=== PATIENT | female | born 1980 | race Caucasian/White ===

== ENCOUNTER 2020-01-22 09:05 | Outpatient (CLI) | payer OTHER, SELFPAY ==
--- NOTE | 2020-01-27 11:38 | SLEEP_ITS ---
Home sleep study. DATE OF STUDY: 01/22/2020 ORDERING PHYSICIAN: Vinayak Durand. REASON FOR THE STUDY: Obstructive sleep apnea syndrome, depression. HISTORY: This patient is a 39-year-old female, 5 feet 4 inches tall, weighing 140 pounds with a body mass index of 24. She has restless sleep with frequent sleep interruptions. Her complains of severe snoring. All of her siblings have sleep apnea. As a child, she was diagnosed with obstructive sleep apnea and her tonsils were removed. She does not awaken from sleep feeling short of breath. She occasionally awakens at night with belching or coughing. She constantly snores and it is loud enough that others constantly complain about it. She occasionally has trouble sleeping with a cold. She does not gasp for breath at night. She occasionally has breathing problems witnessed by others. She rarely sweats excessively at night. She occasionally notices her heart pounding or beating irregularly at night. She does not fall asleep during the day, does not fall asleep involuntarily or while driving. She does not have sleep occur during physical exercise. She occasionally has loss of muscle tone with strong emotion and occasionally has trouble during the daytime due to excessive sleepiness. She is an mortgage loan assistant. She does not feel paralyzed on waking or falling asleep. She does not have vivid dreamlike scenes upon awakening or falling asleep. She is never afraid to go to sleep. She occasionally has nightmares, occasionally remembers her dreams, frequently has racing thoughts, rarely has feelings of sadness or depression. She frequently has anxiety, muscular tension and notices parts of her body jerking. She rarely kicks at night. She occasionally has crawly achy feelings in her legs. She does not have leg pain at night. She occasionally has morning jaw pain, frequently grinds her teeth during sleep. She rarely is bothered by pain during the day. She is not awakened by pain at night. She occasionally wakes up feeling stiff in the morning with sore achy muscles, frequently with pain in the neck and spine. She has memory problems, sometimes insomnia and frequent concentration difficulties. She takes antacids regularly. She goes to bed at 9:30 p.m., usually falling asleep quickly, waking 2 to 3 times at night to go to the bathroom. She awakes in the morning at 6 a.m. On the weekends, she will stay awake an hour later and wake from sleep 2 to 3 hours later, so she is getting recovery sleep. She estimates 6 to 8 hours of sleep at night. She does not take naps. Rarely, if she has a nap, it may be refreshing. She is drowsy in the morning for 1 hour or longer. She feels better in the afternoon than other times a day. MEDICAL COMORBIDITIES: Depression, fatigue, polyneuropathy. MEDICATIONS: None listed. HABITS: Smoked tobacco years ago. Caffeine, 1 cup of green tea daily. 3 to 4 alcoholic beverages daily. No recreational drugs. DESCRIPTION OF THE STUDY: On the [place] Sleepiness Scale, the score is 11. This was conducted as a type 3 portable home sleep test with 4-channel monitoring including respiratory effort channel, snoring channel, oxygen saturation channel, and heart rate channel. The study was scored using CMS guidelines. Duration was 8 hours 43 minutes. The AHI is 4. The oxygen desaturation index is 3.4. Lowest desaturation is 89%. The average saturation is 95%. She had 8 apneas. Of these apneas, the majority 88% or 7 apneas were central, 1 apnea or 12% was obstructive. She had 26 hypopneas, 28 snoring events, and 30 desaturations without desaturating below 88%. Heart rate ranged from 48 to 95. IMPRESSION: 1. This portable home sleep test shows evidence of extremely mild sleep
== END 2020-01-22 09:06 | disposition home or self-care (01) ==
LOC: ANHCSM 09:05
PROVIDERS: PCP Internal Medicine; Visit Provider Internal Medicine
DX: G47.30 Sleep apnea, unspecified (principal)
CPT/HCPCS: 95806

== ENCOUNTER 2021-08-22 12:08 | Emergency (ER) | payer OTHER, SELFPAY ==
[2021-08-22 12:45] VITALS: BP 121/52; PULSE 63; RESP 16; TEMP 36.8; O2SAT 100
--- NOTE | 2021-08-22 13:52 | ED.EYEPROB ---
HPI - Eye Problem General Chief complaint: Eye Problems Stated complaint: Shingles In Eye Time Seen by Provider: 08/22/21 13:41 Source: patient and family Mode of arrival: ambulatory Limitations: no limitations History of Present Illness HPI Narrative: 40 years old white female had rash left side of face and the scalp started 1 week ago, started on Valtrex 3 days ago, 1 day later developed itching rash all over her body, Valtrex was stopped, did not prescribe any alternative, came today because left eye is red, sore with clear discharge. Patient was told by her family physician to go to the emergency room for evaluation. Related Data Allergies Allergy/AdvReac Type Severity Reaction Status Date / Time amoxicillin Allergy Unknown HIVES Verified 08/22/21 14:10 valacyclovir [From Valtrex] Allergy Rash Verified 08/22/21 14:10 Review of Systems Review of Systems: CONSTITUTIONAL: Denies fever, chills, or sweats. EYES: Denies visual changes, redness, or discharge. ENT: Denies rhinorrhea, congestion, sore throat, or otalgia. CARDIOVASCULAR: Denies chest pain, palpitations, or edema. RESPIRATORY: Denies cough or dyspnea. GASTROINTESTINAL: Denies abdominal pain, nausea, vomiting, or diarrhea. GENITOURINARY: Denies dysuria or hematuria. SKIN: Denies rash or itching. MUSCULOSKELETAL: Denies back pain, joint pain, or myalgia. NEUROLOGIC: Denies headache, numbness, or weakness. PSYCHIATRIC: Denies anxiety or depression. Exam Narrative: General appearance: Well-developed, well-nourished Skin: Scattered blisters and the left face around left eye including the upper and lower eyelids Head: Normocephalic, nontraumatic Eyes: Conjunctival injection with tears ENT: Oropharynx normal, ears normal, nose normal Neck: Supple, nontender Vascular: Normal peripheral pulses, normal capillary refill. 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 Date: 08/22/21 Time: 16:13 Consultation #2: DR MANDUJANO, door to door salesperson at [facility]. Patient can follow-up as outpatient at [phone] Date: 08/22/21 Time: 16:14 Consultation #3: DR KEARNEY, ED of [facility], accepted patient transfer Date: 08/22/21 Time: 16:14 Vital Signs Vital signs: Vital Signs Temperature 36.8 C 08/22/21 12:45 Pulse Rate 63 08/22/21 12:45 Respiratory Rate 16 08/22/21 12:45 Blood Pressure 121/52 L 08/22/21 12:45 Pulse Oximetry 100 08/22/21 12:45 Temperature 36.8 C 08/22/21 12:45 Pulse Rate 63 08/22/21 12:45 Respiratory Rate 16 08/22/21 12:45 Blood Pressure 121/52 L 08/22/21 12:45 Pulse Oximetry 100 08/22/21 12:45 Procedures Other Procedure Procedure 1: Other Procedure: Fluorescent test on the left eye showed no acute abnormalities. MDM - Eye Problem MDM Narrative Medical decision making narrative: Patient presents with herpes zoster ophthalmicus. Patient is allergic to Valtrex. Currently complaining of left eye irritation and soreness which high likely infected with the virus. Patient need to be on oral antiviral treatment plus eye lubricant. Waiting for ophthalmology consultation. Patient visual acuity is 20/20, 20/15. Fluorescein test is negative. Discharge Plan Discharge Clinical Impression: Herpes zoster Qualifiers: Herpes zoster complications: without complications Qualified Code(s): B02.9 - Zoster without complications Allergic drug reaction Qualifiers: Encounter
--- NOTE | 2021-08-22 16:37 | PC.NURSE ---
Refuses ambulance transport to [facility] for further treatment. Pt states she needs to go home first and then she will drive herself to [facility]. Pt advised of risks of delay of treatment.
== END 2021-08-22 16:42 | disposition short-term general hospital (02) ==
PROVIDERS: Emergency Provider Emergency Medicine; PCP Internal Medicine
DX: B02.9 Zoster without complications (principal); T78.40XA Allergy, unspecified, initial encounter
CPT/HCPCS: 99282; A9270

== ENCOUNTER 2024-08-19 07:49 | Outpatient (CLI) | payer OTHER, SELFPAY ==
--- NOTE | ~2024-08-19 | NM_ITS ---
EXAMINATION: NM bone scan limited area DATE: 08/19/2024 13:34 INDICATION: Right hip pain TECHNIQUE: 24.3 mCi Tc-99m HDP was administered intravenously. Delayed scintigrams of the abdomen, p magnolia and proximal thighs were obtained in the anterior and posterior projections and of the pelvis a nd proximal thighs were obtained in the left and right lateral projections. COMPARISON: There are no other imaging studies at our institution. FINDINGS: Physiologic distribution of bone and soft tissue activity in the abdomen, pelvis or proximal thighs. No abnormal foci of increased bone uptake or photopenic defects. IMPRESSION: 1. Normal study. Reviewed, dictated and finalized at location A. IMPRESSION: 1. Normal study.
== END 2024-08-19 07:50 | disposition home or self-care (01) ==
PROVIDERS: PCP Internal Medicine; Visit Provider Internal Medicine
DX: M25.551 Pain in right hip (principal)
CPT/HCPCS: 78300; A9503

== ENCOUNTER 2025-02-07 14:56 | Outpatient (CLI) | payer OTHER, SELFPAY ==
--- NOTE | ~2025-02-07 | MM_ITS ---
EXAMINATION: MM screening jeane BI w jason HISTORY: Screening TECHNIQUE: Craniocaudal and mediolateral oblique 3-D tomosynthesis images were obtained and synthetic 2-D images were generated. CAD analysis was submitted and interpreted. COMPARISON: No prior mammogram is available for comparison at this institution. BREAST PARENCHYMAL COMPOSITION: Dense: The breasts are extremely dense, which lowers the sensitivity of mammography. FINDINGS: There is no evidence of suspicious mass, calcification, or architectural distortion to sugg est malignancy in either breast. There has been no suspicious interval change. IMPRESSION: 1. No mammographic evidence of malignancy. 2. Recommend routine screening mammography in one year. BI-RADS Category 1: Negative Reviewed, dictated and finalized at location A.
--- OUTSIDE RECORDS SUMMARY | 2025-02-07 15:02 | XMS_ITS | Referral Summary ---
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 Gender Identity Not on file Sexual Orientation Not on file Last Filed Vital Signs Vital Sign Reading Time Taken Comments Blood Pressure - - Pulse - - Temperature - - Respiratory Rate - - Oxygen Saturation - - Inhaled Oxygen Concentration - - Weight 59 kg (130 lb 0.1 oz) 04/13/2015 8:47 AM CDT Height 162.6 cm (5' 4 ) 04/13/2015 8:47 AM CDT Body Mass Index 22.32 04/13/2015 8:47 AM CDT Plan of Treatment Not on file Insurance [facility]PPO Address: [address] [address] [place] [phone] [facility] [facility]/PPO Address: [address] [address] [place] [phone] Care Teams Brattice Builder Relationship Specialty Start Date End Date Vinayak Durand MD [facility] [address] [place] [address] PCP - General Internal Medicine 07/14/24
--- OUTSIDE RECORDS SUMMARY | 2025-02-07 15:02 | XMS_ITS | Clinical Summary ---
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 Gender Identity Not on file Sexual Orientation Not on file Obstetrics History Last Filed Vital Signs Vital Sign Reading [...] 04/13/2015 8:47 AM CDT Plan of Treatment Health Maintenance Due Date Last Done Comments Breast Cancer Screening-Mammogram 1979 Cervical Cancer Screening 1979 Colon Cancer Screening-Colonoscopy 1979 Depression Screening 1979 Hepatitis C Screening 1979 DTaP/Tdap/Td Vaccine (1 - Tdap) 1990 Hepatitis B Screening 1997 Regular Well Visit/Exam 18-64 1997 Influenza Vaccine (Season Ended) 2025 HPV Vaccines Aged Out No longer eligi ble based on patient's age to complete this topic Pneumococcal vaccine <65 Aged Out No longer eligible based on patient's age to complete this topic Insurance [facility] [employer] Care Teams Data Management Specialist Relationship Specialty Start Date End Date Vinayak Durand MD [address] [place] [id number] PCP - General Internal Medicine 07/14/24
--- OUTSIDE RECORDS SUMMARY | 2025-02-07 15:02 | XMS_ITS | Data Portability ---
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 Still has some symptoms on the left hip trochanteric bursa. She would like another shot of cortisone here after we discussed treatment options in detail. Under sterile conditions I injected the patient's left hip trochanteric bursa in the office with 4 cc 0.5% ropivacaine and 20 mg of Kenalog. Patient tolerated the procedure well. She will continue with stretching and ice if necessary, she also has a refill on her prednisone she will take this if necessary. I will see her back in 6 weeks if she continues have significant symptoms or once the right side injected. She voiced understanding agrees with above plan she will call for any further problems difficulties or questions. Not available 06/27/2023 09:37:18 11/13/2023 11/13/2023 Patient has chronic trochanteric bursitis both hips left worse than right. We talked about treatment options today we are going to start her on a course of Voltaren 75 mg b.i.d. with food she is going to continue work on ITB band stretching and her previous exercises as prescribed by physical therapy. We talked about the fact that chronic multiple injections can start to weaken the attachment of the tendinous tissues at the greater trochanteric region. I think we should look into this further with other options 1st before we do another shot of cortisone. We will get some lab work to look for inflammatory markers, we will also get an MRI scan of each hip as she has had such chronic significant pain. I will see her back after this is done talk further about options at that point. She voiced understanding agrees above plan she will call for any further problems difficulties or questions. Not available 11/13/2023 09:58:09 11/20/2023 11/20/2023 The patient has chronic hip pain due to trochanteric bursitis of both hips. Despite several years of conservative measures treatment therapy, stretching, oral anti-inflammatori es, cortisone injections etc. her symptoms continue. We did talk about possibly sending her to see a yoga coordinator for further workup she is going to think about it for now she has declined. She is going to see how the diclofenac works that she has started just recently. She is going to give this more time be aggressive with her stretching modify her activities if necessary. The patient voiced understanding agrees above plan I will see her back as needed she was given a copy of all of her lab work and MRI results in case she wants to get another opinion or see a yoga coordinator. She will call us for any further problems difficulties or questions. Not available 11/20/2023 10:07:20 Plan of Treatment Reminders Order Date Submit Date Provider Last Modified By Organization Details Last Modified Time Details Appointments None recorded. Lab C-reactive protein, quantitativ e, serum or plasma 2023 024 [email or web address] Not available 4 11:51:52 erythrocyte sedimentati on rate, QN, blood 2023 024 [email or web address] Not available 4 11:51:52 IFEOMA + rf (antinuclea r antibodies + rheumatoid factor), quantitativ e, serum 2023 024 [email or web address] Not available 4 09:25:40 Referral None recorded. Procedures injection/a spiration joint/bursa (PROC) - in office procedure, administere d by provider 2022 023 [email or web address] In-Office Order, Internal Use Only DO Not Attach Compendium DO Not Attach Compendium, Do Not Delete/merge, [id number] 3 09:33:08 Surgeries None recorded. Imaging MRI, hip, w/o contrast 2023 024 [email or web address] [facility], [address] [place] [address] Dr, [place], [address], 4 12:21:53 Medication Orders diclofenac sodium 75 mg tablet,luis e yed release 2023 024 [facility] [address] [place] [address] [id number], [address], [place], [id number], 4 17:03:05 Kenalog 10 mg/mL suspension for injection 2022 023 [facility] [address] [place] [address] [facility] #[id number], [address], [place], [id number], 4 17:03:07 ropivacaine (PF) 5 mg/mL (0.5 %) injection solution 2022 023 [facility] [address] [place] [address] [facility] #[id number], [address], [place], [id number], 4 17:03:13 Patient TargetsNo targets recorded. Patient Instructions Encounter Date Encounter Id Patient Instructions Last Modified By Organization Details Last Modified Time 07/30/2024 [id number] risk assessment* Not availabl e 07/30/2024 17:34:17 INFLUENZA VACCIN E TD/TDAP Recommended today, patient declined Ordered Pa tient will get at local pharmacy/health department PNEUMONIA VACCINE Ordered Recommended today, patient declined Patient will get at local pharmacy/health department Recommen ded at age 64 SHINGLES Not indicated MAMMOGRAM: Last Mammogram No screening necessary patient is up to date DEXA SCAN CERVICAL SCREENING/PELVIC EXAMINATION Recommended today, but patient declined Ordered No screening necessary patient is up to date COLORECTAL SCREENING: Last Colonoscopy Recommended today, but patient declined Ordered Co lonoscopy declined. Cologuard ordered No screening necessary until age 45 DEPRESSION SCREENING Negative BMI Overweight Appropri ate NUTRITION Heart Healthy Diet PHYSICAL ACTIVITY Need more exercise/physical activity VISION Ordered Recommended today ALCOHOL USE No alcohol use Occasional/Soci al Use TOBACCO USE non smoker LUNG CANCER SCREENING Non Smoker-not indicated SEXUALLY ACTIVE HEPATITIS C SCREENING Not indicated GLUCOSE SCREENING LIPID SCREENING [email or web address] Not available 07/30/2024 17:17:04 Adult health evaluation risk assessment stable. Bilateral hip pain etiology which is obscure. Will obtain blood work from [facility] where she has had done studies for rheumatoid arthritis etc.. Will set up for a limited bone scan of both hip areas. See there is any signs of any acute inflammation. May need to consider possible nerve conduction study rule out some form of entrapment type of neuropathy. Otherwise is clinically stable. Additional Orders - Directives - Recommendations 1. Limited nuclear bone scan bone scan to lower back and hip area for chronic bilateral hip pain Next Appointment: 6 Months Approximate Date: 01/26/2025 Portions of the record may have been created with voice recognition software. Occasional wrong-word or [id number] substitutions may have occurred due to the inherent limitations of voice recognition software. Read the chart carefully and recognize, using context, where substitutions have occurred. [email or web address] Not available 07/30/2024 17:34:04 Reason for Referral None Reported. Results Created Date Observation Date Name Description Value Unit Range Abnormal Flag Note LastModifiedBy Organization Detail LastModifiedTime 11/15/19 24 11/15/2023 SEDIM ENTAT ION RATE erythrocyte sedimentatio n rate 12 mm/HR 0-20 Not Available [facility] (Lab) [address] [place], [address], 11/15/2023 13:00:33 11/15/19 24 11/15/2023 C REACT FILIPPO PROTE IN,UL TRA SENS C-reactive protein 0.06 mg/dL 0.0-0. 5 Not Available [facility] (Lab) [address] [place], [address], 11/15/2023 13:24:05 11/15/19 24 11/15/2023 RHEUM ATOID FACTO R rf <8.6 IU/mL 0.0-11 .9 Not Available [facility] (Lab) [address] [place], [address], 11/15/2023 13:25:12 11/15/19 24 11/17/2023 IFEOMA BY IFA RFX TITER /KATHRYN MARÍA antinuclear antibodies, ifa Negati ve Negat filippo <1:80 Borde rline 1:80 Posit filippo >1:80 ICAP nomen imani re: AC-0 For more infor mattanner n about Hep-2 cell patte rns use ANApa ttern s.org , the offic ial websi te for the Inter natio nal Conse nsus on Antin uclea r Antib chuck (IFEOMA) Patte rns (ICAP ). Perfo rmed at: [place] [address] Lab Direc tor: Vini peralta PhD, Phone : [phone] Not Available [facility] (Lab) [address] [place], [address], 11/17/2023 14:11:52 11/15/19 24 MR hip w/o contr ast, bilat eral [facility] [address] [place] [id number] Patien t Name: KAYLIE FELICIANO Access ion #: [id number] Sex: F : 1979 0 Dictat ed By: Derick Aponte ing Physic shelli: DARYA WARREN Orderi Physic shelli: DARYA WARREN Exam Date: 2023 08:22 AM Exam Name: MRI HIP BILAT WO Admitt ing Diagno sis(es ): CLINIC AL INFORM ATION: Bilate ral hip pain. No known injury . TECHNI JEREL INFORM ATION: Multis equenc e multip lanar MRI images of the bilate ral hips were obtain ed withou t contra st. COMPAR MICHAEL: None. FINDIN GS: BONES: No acute fractu re or osteon ecrosi s. Hetero geneou s marrow signal , likely due to red marrow hyperp lasia with inters persed areas of focal fatty marrow . JOINTS : Mild joint space narrow ing in both hips. Mild frayin g at the left hip anteri or superi or labrum . BURSAE : Mild edema and trace fluid in the trocha nteric bursae bilate rally. TENDON S: Mild tendin osis of the distal gluteu s medius and minimu s tendon s bilate rally. Origin s of the rectus femori s tendon and hamstr ing tendon s are intact . Distal insert ion of the iliops oas tendon is intact . MUSCLE S: Normal muscle bulk. No signif icant atroph y. No eviden ce of muscle strain or tear. OTHER: No other signif icant findin gs. IMPRES AJAY: 1. No acute osseou s abnorm ality identi fied. 2. Mild frayin g at the left hip anteri or superi or labrum . 3. Findin gs consis tent with mild bilate ral trocha nteric bursit is with mild tendin osis of the distal gluteu s medius and numbne ss tendon s bilate rally. Page 1 [facility] [address] [place] [address] [phone] Patien t Name: KAYLIE FELICIANO ion #: [id number] Sex: F : 1979 0 Dictat ed By: Derick mariscal Attend ing Physic shelli: BRIANA LACKEY [facility] Physic shelli: DARYA WARREN Exam Date: 2023 08:22 AM Exam Name: MRI HIP BILAT WO Admitt ing Diagno sis(es ): Electr onical ly Signed by: Derick mariscal at 2023 11:13: 50 AM Page [address] (Imaging) [address] [place], [address], 11/15/2023 12:21:35 08/19/20 24 08/19/2024 NM, bone scan, limit ed No observ ation record ed. [address] [place] [address], [address], 08/19/2024 17:50:10 08/29/2008/19/2024 NM, bone scan, limit ed No observ ation record ed. [email or web address] Not Available 2023 07:15:49 Result Notes None recorded. 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 Not Available [facility] 4 23:34:01 Verruca plantaris 78910103 Active 2018 Not Available [facility] 4 23:34:01 Irregular periods 23920560 Completed Not Available [facility] 3 06:45:03 Lipoma 47315255 Active Not Available [facility] 4 23:34:01 Trochante vandana bursitis of right hip 46053825036 9100 Active 2022 Not Available [facility] 4 23:34:01 Pain in right hip joint 10431036447 9102 Active 2022 Not Available [facility] 4 23:34:01 Bilateral hip joint pain 39979171920 997768 Active 2023 Not Available [facility] 4 23:34:01 Hip pain 60715878 Active 2023 Ebony Durand MD [address] [place] [address], [place] [address], [place], [address] , [facility] 4 17:30:23 Problem Notes None recorded. Procedures Surgical History None recorded. Imaging Results Imaging Date Name Status LastModified by Organiz ation Details LastModified Time 11/15/2023 MR hip w/o contrast, bilateral completed [email or web address] [facility] (Imaging) [address], [place], [address], 11/15/2023 12:21:35 08/19/2024 NM, bone scan, limited completed [email or web address] [facility] [address] [facility] [address], [place], [address], 08/19/2024 17:50:10 08/19/2024 NM, bone scan, limited completed [email or web address] Information not available 08/30/2024 07:15:49 Procedure Notes None recorded. Medical Equipment None Reported. Allergies Allergen ID Allergen Name Allergen Category Reaction Reaction Severity Criticality Documentation Date Start Date Code Code System Note Provider Name and Address Organization Details Recorded Time 43791 Biaxin medicatio n nausea Not available Not available 01/04/2023 90145 9 RxNorm Not Available [facility] 3 06:51:53 75495 amoxicill in medicatio n rash Not available Not available 01/04/2023 723 RxNorm Not Available [facility] 3 06:51:53 Medications Name Sig Start Date Stop Date Status Note LastModified by Organization Details LastModified Time celecoxib 200 mg capsule TAKE 1 CAPSULE BY MOUTH EVERY DAY 05/15 completed Not Available Not Available Not Available Mirena 21 mcg/24 hr (up to 8 years) 52 mg intrauterin e device Take 1 device by intrauter ine route. 05/15 completed Not Available Not Available Not Available prednisone 10 mg tablet 07/30 completed Not Available Not Available Not Available doxycycline hyclate 100 mg capsule TK 1 C PO BID 09/01 completed Not Available Not Available Not Available Effexor XR 75 mg capsule,ext ended release Take 1 capsule every day by oral route. 2012 active Not Available Not Available Not Avai lable clindamycin HCl 300 mg capsule TAKE 1 CAPSULE BY MOUTH THREE TIMES DAILY UNTIL ALL TAKEN 07/30 completed Not Available Not Available Not Available ibuprofen 800 mg tablet Take 1 tablet 3 times a day by oral route as needed for 30 days. active Not Available Not Available No t Available benzonatate 200 mg capsule Take 1 capsule 3 times a day by oral route. active Not Available Not Available No t Available valacyclovi r 1 gram tablet Take 1 tablet 3 times a day by oral route. active Not Available Not Available No t Available hydrocodone 5 mg-acetamin ophen 325 mg tablet One every eight hours as needed for shingles pain active Not Available Not Available No t Available Doc-Q-Lace 100 mg capsule active Not Available Not Available Not Available acyclovir 800 mg tablet 02/10 completed Not Available Not Available Not Available prednisone 10 mg tablets in a dose pack Take 1 tab by mouth, 3 times a day for 3 daysTake 1 tab by mouth 2 times a day for 2 daysTake 1 tab by mouth once a day for 1 day 07/30 completed Not Available Not Available Not Available alprazolam 0.25 mg tablet TAKE 1 TABLET BY MOUTH 30 MINUTES PRIOR TO MRI APPOINTME NT 07/30 completed Not Available Not Available Not Available prednisolon e acetate 1 % eye drops,suspe nsion 02/10 completed Not Available Not Available Not Available famciclovir 500 mg tablet 02/10 completed Not Available Not Available Not Available Kenalog 10 mg/mL suspension for injection Take 20 mg by injection route. 07/30 completed [facility]: [phone] Not Available Not Available Not Available erythromyci n 5 mg/gram (0.5 %) eye ointment active Not Available Not Available Not Available Xylocaine 20 mg/mL (2 %) injection solution Take 40 mg by injection route. 05/15 completed Not Available Not Available Not Available diclofenac sodium 75 mg tablet,luis e yed release TAKE 1 TABLET BY MOUTH TWICE DAILY 07/30 completed Not Available Not Available Not Available hydroxyzine HCl 25 mg tablet Take 1 tablet 3 times a day by oral route as needed. active Not Available Not Available No t Available levofloxaci n 500 mg tablet Take 1 tablet every 24 hours by oral route. 09/04 completed Not Available Not Available Not Available methylpredn isolone 4 mg tablets in a dose pack FOLLOW PACKAGE DIRECTION S 05/15 completed Not Available Not Available Not Available Bactrim DS 800 mg-160 mg tablet Take 1 tablet every 12 hours by oral route for 7 days. 09/04 completed Not Available Not Available Not Available Mirena 2012 active Not Available Not Available Not Avai lable lidocaine (PF) 5 mg/mL (0.5 %) injection solution Take 30 mg by injection route. 05/15 completed Not Available Not Available Not Available Artificial Tears (glycerin-p eg) 1 %-0.3 % eye drops 02/10 completed Not Available Not Available Not Available ropivacaine (PF) 5 mg/mL (0.5 %) injection solution Take 20 mg by injection route. 07/30 completed [facility] [phone] Not Available Not Available Not Available BinaxNOW COVID-19 Ag Self Test kit 02/10 completed Not Available Not Available Not Available Vitals Date Recorded Body height Body mass index (BMI) Body weight Provider Name and Address Organization Details Last Updated DateTime 06/27/2023 162.56 cm 22.3 kg/m2 03633.01 g Sophie Hughes Alejandro [facility] [employer] [facility] 06/27/2023 09:16:03 Date Recorded Body height Provider Name an d Address Organization Details Last Updated DateTime 11/13/2023 162.56 cm Yahaira Randolphs [facility] [employer] [facility] 11/13/2023 09:18:23 Date Recorded Body height Body mass index (BMI) Body weight Provider Name and Address Organization Details Last Updated DateTime 11/20/2023 162.56 cm 22.3 kg/m2 38825.01 g Flores Muñoz CNA [facility] [employer] [facility] 11/20/2023 09:34:12 Date Recorded Body height Body mass index (BMI) Body weight Heart rate Body temperature Oxygen saturation Oxygen saturation in Arterial blood by Pulse oximetry Systolic blood pressure Diastolic blood pressure Provider Name and Address Organization Details Last Updated DateTime 162.56 cm 25.4 kg/m2 96396.6 7 g 89 /min 97 [degF] 98 % 98 % 110 mm[Hg] 84 mm[Hg] Maribel Belle Alejandro [facility] [employer] [facility] 17:02:45 Date Recorded Body height Body mass index (BMI) Body weight Heart rate Body temperature Oxygen saturation Oxygen saturation in Arterial blood by Pulse oximetry Systolic blood pressure Diastolic blood pressure Provider Name and Address Organization Details Last Updated DateTime 162.56 cm 25.2 kg/m2 46029.0 8 g 71 /min 97 [degF] 98 % 98 % 124 mm[Hg] 88 mm[Hg] YUE Escalera [facility] [employer] [facility] 16:26:43 Social History Question Answer Notes LastModified by Organizat ion Details LastModified Time Tobacco Smoking Status Never Smoker Not Available [facility] 01/04/2023 06:40:03 What Is Your Level Of Alcohol Consumption? Occasional [id number] Information not available 01/04/2023 Sex: Unknown Functional Status None recorded. Mental Status None recorded. Family History Relationship Description Onset Age of this Age Resolved Age Notes LastModified by Organization Details LastModified Time Father Heart disease [id number] Not available 01/04/2023 06:40:12 Father Cerebrovascu lar accident [id number] Not available 01/04/2023 06:40:13 Father Hypertensive disorder [id number] Not available 01/04/2023 06:40:13 Father Diabetes mellitus [id number] Not available 01/04/2023 06:40:13 Notes:Mother in good health 69 does have a hx of migraines and RA.. Father 68f ASHD 66 Three brothers hx of Cholesterol and two with sleep apnea Medical History Condition Response NERVE DISEASE N BLINDNESS N RHEUMATIC FEVER N KIDNEY STONES N BLADDER PROBLEMS N MRSA N OTHER # 1 N POLIO N LUNG DISEASE/DISORDER N HISTORY OF DRUG ABUSE N RADIATION / CHEMOTHERAPY N COPD N Other # 2 N BLOOD DISEASES N EAR OR HEARING PROBLEMS N MUMPS N SHINGLES N BOWEL PROBLEMS N DEPRESSION (INCLUDING POST ) N STROKE/TIA N ULCERS N BENIGN PROSTATIC HYPERPLASIA N MEASLES N HYPOTENSION N MYOCARDIAL INFARCTION N OBESITY N GERD/NAUSEA N ANEURYSM N URINARY/BLADDER/KIDNEY PROBLEMS N CORONARY ARTERY DISEASE (CAD) N ADDICTION CONCERNS N ENDOMETRIOSIS N Impotence N USE OF BLOOD THINNERS N SKIN PROBLEMS N GASTROINTESTINAL DISORDER N PERIPHERAL VASCULAR DISEASE N MUSCLE,JOINT OR BONE PROBLEMS N GASTROINTESTINAL BLEEDING N BLOOD CLOTS N ASTHMA N CATARACTS N ERECTILE DYSFUNCTION N VARICOSITIES N GI PROBLEMS N Low Testosterone N INFERTILITY N AIDS/HIV N CHEMOTHERAPY / RADIATION N LIVER DISEASE N MALE HYPOGONADISM N HYPERTENSION N Deficiency N TOURETTE'S N ANXIETY DISORDER N BLOOD TRANSFUSION N ANEMIA/BLOOD DISORDER N CHRONIC EAR INFECTIONS N BRONCHITIS N TUBERCULOSIS N GLAUCOMA N FOOT PROBLEM N DIVERTICULITIS N CHICKENPOX N SLEEP APNEA N INFECTIOUS DISEASE N HEART ARRHYTHMIA N PROSTATE N INSOMNIA N HIGH CHOLESTEROL / HYPERLIPIDEMIA N HYPERTHYROIDISM N EYE PROBLEMS N EDEMA N CHRONIC PAIN SYNDROME N HYPOTHYROIDISM N CAROTID BLOCKAGE N CONSTIPATION N BACK / NECK PROBLEMS N HAVE YOU BEEN HOSPITALIZED OR SEEN IN [facility] ER IN THE PAST YEAR ? N ATHEROSCLEROSIS N BREAST PROBLEMS N DIALYSIS N ECZEMA N OSTEOPOROSIS N ARTHRITIS N NO SIGNIFICANT PAST MEDICAL HISTORY N APPENDICITIS N DIABETES, TYPE N BAD TEETH N ENT N HEARTBURN / REFLUX N AUTISM SPECTRUM DISORDER (ASD) N HEPATITIS / LIVER DISEASE N GOUT N SLEEP DISORDER N ALZHEIMER'S DISEASE N Brain Problems N HERPES N DEMENTIA N HEADACHES/MIGRAINES N SEIZURES/EPILEPSY N VASCULAR DISEASE N PACEMAKER N Blood Disorder N DIZZINESS N HEART DISEASE/HEART PROBLEMS N KIDNEY DISEASE N MULTIPLE SCLEROSIS N CARDIAC ARRHYTHMIA N CANCER: SPECIFY N ATRIAL FIBRILLATION N Gall Stones N PULMONARY EMBOLISM N AUTOIMMUNE DISEASE N Gynecological HistoryNo gynecological history recorded. Obstetrics History GPAL:G 0 P 0 0 0 0 Past Encounters Encounter ID Performer Location Encounter Start Date Encounter Closed Date Diagnosis/Indication Diagnosis SNOMED-CT Code Diagnosis ICD10 Code Diagnosis Note [id number] [facility] [address] [facility] [place] [address] 08/20/2021 00:00:00 08/20/2021 14:47:58 [id number] [facility] [address] [facility] [address] [place] [address] 02/10/2022 00:00:00 02/10/2022 09:55:21 [id number] [facility] [place] [address] [place] [address] 03/29/2022 00:00:00 03/29/2022 16:08:35 [id number] [facility] [address] [place] [address] 04/25/2022 00:00:00 04/25/2022 10:24:45 [id number] KATELYNN Webb [facility] [place] [address] [facility] [address] [place] [address] 05/15/2023 10:13:24 05/15/2023 11:36:18 Pain of left hip joint 6184256695 40649 M25.552 M25.551 Trochanter ic bursitis of left hip 7864263437 49736 M70.62 Trochanter ic bursitis of right hip 1811914097 62095 M70.61 Pain in ri ght hip joint 6497394233 59206 M25.551 [id number] KATELYNN Webb [facility] [address] [address] 06/27/2023 09:13:19 06/27/2023 09:58:29 Pain of left hip joint 9194388936 16804 M25.552 M25.551 Trochanter ic bursitis of left hip 0679815778 33759 M70.62 Trochanter ic bursitis of right hip 7874960731 76494 M70.61 Pain in ri ght hip joint 5533599583 67422 M25.258 [id number] KATELYNN Webb [facility] [address] [place] [address] 11/13/2023 09:13:58 11/13/2023 10:18:35 Pain of left hip joint 1107087462 30631 M25.552 M25.551 Pain in ri ght hip joint 6152000233 70561 M25.551 Trochanter ic bursitis of left hip 0370957855 40792 M70.62 Trochanter ic bursitis of right hip 6835508882 33002 M70.61 Bilateral hip joint pain 5466413213 0701770 M25.551 M25.662 [id number] KATELYNN Webb [facility] [address] [place] [address] 11/20/2023 09:24:37 11/20/2023 10:22:50 Pain of left hip joint 1777192717 71790 M25.552 M25.551 Pain in ri ght hip joint 2267059323 64776 M25.551 Trochanter ic bursitis of left hip 1536752455 94935 M70.62 Trochanter ic bursitis of right hip 0895020826 26140 M70.61 Bilateral hip joint pain 1710243912 [id number] M25.551 M25.743 [id number] Ebony Durand MD [facility] [facility] lle [address] [facility] [place] [place] [address] 07/30/2024 16:56:17 07/30/2024 17:38:40 Adult health examination [id number] Z00.00 Depression screening 171 [id number] Z13.31 Hip pain [id number] M25.55 9 [id number] Ebony Durand MD [facility] Internal Med [facility]olph [employer] [address] [facility] [address] [address] 09/12/2024 16:21:29 09/12/2024 16:48:11 Health Concerns Section Related Observation LastModified by Organization Detai ls LastModified Time None Recorded Concern Status LastModified by Organization Details LastModified Time None Recorded Advance Directives Directive None Recorded Payers Encounter Date Sequence Insurance Name Policy Number Policy Kaye Covered Member ID Kaye Member ID Guarantor Name 06/27/2023 1 [employer] - CHOICE PLUS [id number] Floresita Reece Sweet [id number] Floresita Mae 11/13/2023 1 [employer] - CHO[employer] PLUS [id number] Floresita Reece Sweet [id number] Floresita Mae 11/20/2023 1 [employer] - CHOICE PLUS [id number] Floresita Reece Sweet [id number] Floresita Mae 07/30/2024 1 [employer] - CHOICE PLUS [id number] Floresita Reece Sweet [id number] Floresita Reece Sweet 09/12/2024 1 [facility] - CHOICE PLUS [id number] Floresita Reece Sweet [id number] Floresita Mae Notes Date Note Type Note Provider Name and Address Organization Details Recorded Time 3 text/html patient returns for recheck of both hips. She had bilateral trochanteric bursitis we did shot of cortisone bilaterally as well as talked about stretching exercises and she took 1 round of oral prednisone. She states she has had significant improvement on the right she is now able to sleep on that side gets to about a 3 on a scale of 1-10 when the pain is at its worst states it is livable. The left side continues to bother her somewhat she has pain from 5-6 on a scale 1-10 at its worst. Can not really sleep on her left side. She has been working on aggressive stretching but continues have symptomatic left hip pain. We talked about treatment options today she would like another shot of cortisone on the left. For now she states the right side is pretty good. KATELYNN Webb [address], [place], [address], [employer] [facility] [employer] 06/27/2023 09:37:27 4 text/html Patient returns complaining of bilateral hip pain she has had 4-5 years of pain over the trochanteric regions. She has had 3-4 cortisone injections in each hip over the years without significant long-term relief. They do help briefly her last injection was about 5 months ago. She states she does not have any pain when she is up and about but if she sits too long particularly like in a long car ride she has to stop and get out moved around to help with this she also cannot sleep at night certainly cannot lie on either side the left hip hurts worse than the right. Denies any specific trauma or injury no back pain or radicular pain she does work out 3 days a week works with a safety trainer she has been through a course of physical therapy is also taking prednisone previously and Celebrex a couple of years ago which did not give her much relief either. She has chronic trochanteric bursitis long-term treatment has not helped much we will look into this further she comes in for recheck and evaluation today. Denies any groin or anterior thigh pain no loss of motion in either hip. KATELYNN Webb [address], [address], [place], [address], [employer] [facility] [employer] 11/13/2023 10:01:55 4 text/html Patient returns for recheck of both hips for lab work and MRI results of both hips. Lab work was done including IFEOMA rheumatoid factor sed rate and C reactive protein all of which are normal according to the lab findings. MRI of both hips was done she has had 5 years of trochanteric bursitis type pain she has had cortisone injections sessions of therapy she takes stretching seriously and does this every day she also works out. She has been working with a safety trainer and does yoga to try to stretch and maintain her flexibility and strength. She has also taken oral prednisone a couple of times previously all of which really do not give her the full relief she is looking for. She states that today the left side hurts worse than the right the shot of cortisone recently gave her some relief still has pain about a 4 on a scale 1-10 although she states she was able to sleep on her side last night on the right. Last week we did start a course of oral diclofenac 75 mg b.i.d. hopefully this will help she is to give this more time to work. She comes in today for evaluation and recheck. The MRI scan shows mild fraying of the left hip anterior superior labrum no acute bony abnormalities noted. No chronic bony abnormalities noted. She does have findings consistent with mild bilateral trochanteric bursitis with mild tendinosis of the distal gluteus medius as well. I have reviewed the MRI scan in detail today with the patient agree with the above findings. She states her parent and her grandparents both have a history of rheumatologic disease /rheumatoid arthritis so far her workup has been negative for this. She denies any other chronic pain or inflammation in other joints. KATELYNN Webb [address] [facility] [facility] [address], [place], [address], [facility] [employer] 11/20/2023 10:07:38 4 text/html Patient Name: Floresita Worthy Of Service: Monday ( 07.30.2024 ): 1980 Age: 43 Vital Signs:Blood Pressure: Sitting Rt. Arm 110/84Pulse: Sitting 89 /min and RegularRespiratory Rate: 14Height 64 in or 1.6 mWeight 148 lb or 67.1 kgBMI 25.4Temperature: 97 F or 36.1 CPulse Oximetry: 98 % at rest on no oxygen Chief Complaint: Addressed in HPI Problems or conditions discussed in the HPI were the only ones reviewed during the encounter.Only social and family history addressed in the HPI were reviewed during this encounter. Attendant(s): NoneConstitutional and Systemic Symptoms:none Medication Reconciliation: from medication list. History of Present Illness In for a well patient check up. Last well patient evaluation was approximately one year. No interval complaints of any major medical problems. No hx of any chest pain, shortness of breath, nausea, vomiting, diarrhea or constitutional symptoms. Also being followed for other chronically monitored problems.Has Had A Mammogram already doneHas Had A Pap Smear dueImmunizations Up To Date or refuses to takeNo Significant Change In Family HxColonoscopy or Cologuard: not dueFall Risk normalDepression Score: 0PHQ-9 Score [IndicatedHearing normalVision normalReviewed Smoking and Drug HistoryReviewed Immunization HistoryInstructed on importance of weight on diabetes, heart and other diseases aggravated by obesity. #1. Complaining of a several year history of pain and discomfort left hip which now has migrated as well to the right hip. Has undergone extensive evaluation including steroid injections, oral steroid as well as Rheumatology which failed to disclose any significant anomalies. The pain has gotten to the point where the patient at times having difficulty in performing daily activities particularly with walking and climbing etc.. Denies any numbness, tingling, weakness or any other associated systemic symptomatology. Apparently he has been evaluated by by Rheumatology not been found to have any rheumatic diseases although her mother does have a history of rheumatoid arthritis. No other systemic manifestations. Denies any gastrointestinal symptomatology might suggest possible inflammatory bowel disease.: Adverse Drug Reactions ReviewedAmoxicillin RashBiaxin Nausea Vaccination and [id number] Dt Surgical [id number] Tonsillectomy Preventative Testing( ) 11/08/2019 Albumin 4.3 G/DL N( ) 06/09/2010 Upper Endoscopy Social HistoryDoes not smoke. Drinks socially. Currently working as a school principle. Family HistoryMother in good health 69 does have a hx of migraines and RA..Father 68f ASHD 66 deceasedThree brothers hx of Cholesterol and two with sleep apneaMenarche 11 Menopause A0 Ebony Durand MD [address] [facility] [facility] [address], [place], [address], [facility] [employer] 07/30/2024 17:34:20 OBGyn Episode No OBEpisode recorded.
== END 2025-02-07 14:57 | disposition home or self-care (01) ==
LOC: ANHIMG 14:58
PROVIDERS: PCP Internal Medicine; Visit Provider Obstetrics & Gynecology
DX: Z12.31 Encounter for screening mammogram for malignant neoplasm of breast (principal)
CPT/HCPCS: 77063; 77067